=== PATIENT | male | born 1965 | race Asian ===

== ENCOUNTER 2019-11-28 03:23 | Emergency (ER) | payer SELFPAY ==
[~2019-11-28] VITALS: Ht 167.6 cm; Wt 66.0 kg
[2019-11-28] MEDS ORDERED: MORPHINE SULFATE 4 MG/ML SYRINGE IVP ONE (03:30)
[2019-11-28] MEDS ORDERED: PERTUSS(ACELL),DIPH,TET VAC/PF 0.5 ML VIAL IM ONE (03:30)
[2019-11-28] MEDS ORDERED: ONDANSETRON HCL 4 MG/2 ML VIAL IVP ONE (03:30)
[2019-11-28] MEDS ORDERED: CeFAZolin 1 GM/DEXTROSE 50 ML IV ONE ×2 (03:31→03:45)
[2019-11-28 04:59] LABS: CALCIUM, TOTAL 9.4 mg/dL (8.8-10.5); CREATININE 1.39 mg/dL (0.60-1.30); POTASSIUM 3.5 mmol/L (3.5-5.1)
[2019-11-28 05:04] LABS: BASOPHILS % (AUTO) 0.6 % (0.0-2.0); HEMATOCRIT 41.3 % (41-53); HEMOGLOBIN 14.5 g/dL (13.5-17.5); LYMPHOCYTES # (AUTO) 1.7 K/uL (1.0-4.8); MEAN CORPUSCULAR HEMOGLOBIN 32.8 pg (26.0-34.0); MEAN CORPUSCULAR HGB CONC 35.1 G/dL (31.0-37.0); MEAN CORPUSCULAR VOLUME 93 fL (80-100); MONOCYTES % (AUTO) 11.4 % (2.0-9.0); NEUTROPHILS # (AUTO) 5.6 K/uL (1.8-7.7); PLATELET COUNT (AUTO) 150 K/uL (150-450); RED BLOOD CELL COUNT(AUTO) 4.42 MIL/uL (4.50-5.90); RED CELL DISTRIBUTION WIDTH 11.7 % (11.5-14.5)
[2019-11-28 05:07] LABS: ALBUMIN 3.9 g/dL (3.4-5.0); BILIRUBIN,TOTAL 0.8 mg/dL (0.1-1.0); TOTAL PROTEIN, SERUM 7.7 g/dL (6.4-8.2)
[2019-11-28 08:03] VITALS: BP 119/81
== END 2019-11-28 08:55 | disposition home or self-care (01) ==
LOC: EMS 03:23
DX: S01.01XA Laceration without foreign body of scalp, initial encounter (principal); S50.02XA Contusion of left elbow, initial encounter; F43.0 Acute stress reaction; F15.10 Other stimulant abuse, uncomplicated; F12.90 Cannabis use, unspecified, uncomplicated; M54.2 Cervicalgia; R06.02 Shortness of breath; F17.210 Nicotine dependence, cigarettes, uncomplicated; Y04.2XXA Assault by strike against or bumped into by another person, initial encounter; Y93.89 Activity, other specified; Y92.89 Other specified places as the place of occurrence of the external cause; Y99.8 Other external cause status
CPT/HCPCS: 12001; 70450; 70486; 71045; 72125; 73080; 73090; 73110; 80053; 85025; 85610; 85730; 90471; 90715; 93005; 96365; 96375; 99285; G0480; J0690; J2270; J2405

== ENCOUNTER 2019-12-01 18:23 | Emergency (ER) | payer MEDICAID ==
[~2019-12-01] VITALS: Ht 172.7 cm; Wt 65.9 kg
[2019-12-01] MEDS ORDERED: ACETAMINOPHEN 325 MG TABLET PO ONE (22:00)
[2019-12-01] MEDS ORDERED: HYDROCODONE/ACETAMINOPHEN 5-325 MG TABLET PO ONE (22:00)
[2019-12-01] MEDS ORDERED: AMOX TR/POT CLAV 875 MG/125 MG TABLET PO ONE (22:00)
[2019-12-01 22:25] VITALS: BP 122/74
== END 2019-12-01 22:31 | disposition home or self-care (01) ==
LOC: EMS 18:23
DX: S00.03XA Contusion of scalp, initial encounter (principal); S00.83XA Contusion of other part of head, initial encounter; R42 Dizziness and giddiness; F07.81 Postconcussional syndrome; K04.7 Periapical abscess without sinus; F12.90 Cannabis use, unspecified, uncomplicated; Z87.891 Personal history of nicotine dependence; Y04.0XXA Assault by unarmed brawl or fight, initial encounter; Y93.89 Activity, other specified; Y92.89 Other specified places as the place of occurrence of the external cause; Y99.8 Other external cause status
CPT/HCPCS: 70450; 70486; 72125